=== PATIENT | female | born 1935 | race Caucasian/White ===

== ENCOUNTER 2019-02-19 11:56 | Inpatient (IN) ==
[2019-02-19] MEDS ORDERED: DUONEB (A & A) INH ONE (12:37)
[2019-02-19] MEDS ORDERED: SOLU-MEDROL IV ONE (12:37)
[2019-02-19] MEDS ORDERED: NS 1,000 ML IV ONE ×2 (12:37→16:13)
[2019-02-19 13:19] LABS: BASO# 0.16 X1000 (0.0-0.2); BASO% 1.1 % (0.0-0.8); EOS# 0.23 X1000 (0.0-0.7); EOS% 1.6 % (0.0-10.0); HEMOGLOBIN 9.9 g/dL (12.0-16.0); IMM GRAN# 0.03 X1000 (0.0-0.04); IMM GRAN% 0.2 % (0.0-0.5); LYMPH# 1.76 X1000 (1.2-3.4); LYMPH% 12.3 % (20.5-51.1); MCH 27.3 PG (27-31); MCHC 30.9 g/dL (33-37); MCV 88.4 FL (81-99); MONO# 1.47 X1000 (0.11-0.59); MONO% 10.3 % (1.7-9.3); MPV 12.5 FL (7.4-10.4); NEUT# 10.65 X1000 (1.4-6.5); NEUT% 74.5 % (42.2-75.2); PLT 240 X1000 (130-400); RBC 3.62 XMIL (4.2-5.4); RDW 16.6 % (11.5-14.5)
[2019-02-19 13:32] LABS: AGAP 11; ALBUMIN 3.7 g/dL (3.5-5.0); ALKALINE PHOSPHATASE 130 U/L (32-104); BUN 17 mg/dL (8-22); CALCIUM 9.8 mg/dL (8.8-10.2); CHLORIDE 100 mmol/L (98-107); COSMO 270; CREATININE 0.6 mg/dL (0.5-0.9); ESTIMATED GFR > 60; GLUCOSE 111 mg/dL (70-104); GOT 21 U/L (10-30); GPT 10 U/L (10-36); POTASSIUM 4.3 mmol/L (3.5-5.1); SODIUM 134 mmol/L (136-145); TCO2 23 mmol/L (25-35); TOTAL PROTEIN 6.1 g/dL (6.3-8.3)
--- NOTE | 2019-02-19 13:35 | EKG Report ---
Test Performed on : 02/19/2019 12:26:58 PM Test Reason : sob Blood Pressure : / mmHG Vent. Rate : 080 BPM Atrial Rate : 394 BPM P-R Int : 000 ms QRS Dur : 084 ms QT Int : 386 ms P-R-T Axes : 000 063 065 degrees QTc Int : 445 ms Atrial fibrillation. Anterior infarct , age undetermined Abnormal ECG No previous ECGs available Unconfirmed Result
--- NOTE | 2019-02-19 13:51 | Diag Imaging Result Doc PS360 ---
EXAM: CHEST-PORTABLE INDICATION: cough TECHNIQUE: One view COMPARISON: None. FINDINGS: There is pulmonary venous congestion. There are bilateral infiltrates with a basilar predominance indicating pulmonary edema +/- pneumonia. There are bilateral small pleural effusions. There is no evidence of pneumothorax. The heart appears to be enlarged. IMPRESSION: Pulmonary venous congestion and bibasilar infiltrates indicating pulmonary edema +/- pneumonia with bilateral effusions. Electronically signed by Jose Cody 02/19/2019 1:49 PM
[2019-02-19 14:03] LABS: URINE SOURCE CATH
[2019-02-19 14:06] LABS: INR 0.95; PROTIME 13.2 Seconds (11.0-16.0)
[2019-02-19 14:07] LABS: PTT 30.3 Seconds (22.3-41.8)
[2019-02-19 14:07] LABS: BILIRUBIN URINE NEGATIVE (NEGATIVE); BLOOD URINE NEGATIVE (NEGATIVE); COLOR STRAW; GLUCOSE URINE NEGATIVE (NEGATIVE); KETONE URINE NEGATIVE (NEGATIVE); LEUKOCYTES URINE NEGATIVE (NEGATIVE); NITRITE URINE NEGATIVE (NEGATIVE); PROTEIN URINE NEGATIVE (NEGATIVE); SP GRAVITY URINE 1.007; TURBIDITY URINE CLEAR (CLEAR); UROBILINOGEN URINE NORMAL (NORMAL)
[2019-02-19 14:08] LABS: UR EPITHELIAL CELLS <10 /HPF (<10); URINE BACTERIA NEGATIVE /HPF; URINE RBC <10 /HPF (<10); URINE WBC <10 /HPF (<10)
[2019-02-19 14:26] LABS: INFLUENZA A NEGATIVE (NEGATIVE); INFLUENZA B NEGATIVE (NEGATIVE)
--- NOTE | 2019-02-19 16:11 | PROVIDER DOCUMENTATION ---
This chart was entered by Rosy Butcher Scribe, acting as scribe for Frances Jenkins MD. HPI-Respiratory General - General Chief Complaint: Shortness of Breath Stated Complaint: SOB Time Seen by Provider: 02/19/19 12:13 Source: patient, family (son), EMS ([facility]) Allergies/Adverse Reactions: Patient Allergies Allergy/AdvReac Type Severity Reaction Status Date / Time No Known Allergies Allergy Verified 02/19/19 12:19 Home Medications: Home Medication List Medication Instructions Recorded Confirmed Last Taken Type Anagrelide HCl 1 mg PO DIRECTED 02/19/19 02/19/19 02/19/19 History 1 tablet Aspirin [Aspir-Low] 81 mg PO QAM 02/19/19 02/19/19 02/19/19 History 81mg Furosemide [Lasix] 40 mg PO QAM 02/19/19 02/19/19 02/05/19 History 40mg Metoprolol [Lopressor] 50 mg PO BID 02/19/19 02/19/19 02/19/19 History 50mg Potassium Chloride E.r. [Klor-Con] 20 meq PO DIRECTED 02/19/19 02/19/19 02/05/19 History 20meq - History of Present Illness-Resp Nature of Presenting Problem: 83 yowf presents to the ed with c/o sob that has been worsening. pt has muscular dystrophy and is cared for by her son in his home. per ems when they aos pt had O2 sat of 88% on RA, pt was placed on 6LPM via NC and O2 sat came up to 93%. pt was seen on Wednesday by her pcp and had an xray done but does not know results. pt on exam is having mild sob with muscle accessory use but no wheezing is heard Quality of Pain: reports: none Severity in ED: reports: moderate (sob) Onset/Duration: reports: 5 days ago Timing: reports: still present, getting worse Exposure: reports: unknown cause Cough Quality/Degree: reports: mild, dry cough Episode Frequency: occasional episodes Current Respiratory Medication Therapy: Initiated see nurses note Modifying Factors: improves with: oxygen. worse with: coughing Associated Symptoms: reports: cough, shortness of breath. denies: chest pain/soreness, headache, wheezing Similar Symptoms Previously?: Yes Recently seen or treated by another doctor?: Yes (saw pcp on 02/14/19) Review of Systems - Adult - REVIEW OF SYSTEMS - ADULT Constitutional: denies: chills, fever Eyes: reports: no symptoms reported Ears, Nose, Mouth & Throat: reports: no symptoms reported Cardiovascular: denies: chest pain, palpitations Respiratory: reports: see HPI, cough, shortness of breath. denies: wheezing Gastrointestinal: denies: abdominal pain, diarrhea, nausea, vomiting Genitourinary: reports: no symptoms reported Musculoskeletal: denies: back pain, neck pain Integumentary: reports: no symptoms reported Neurological: denies: dizziness/vertigo, headache/migraines Psychiatric: reports: no symptoms reported Endocrine: reports: no symptoms reported Hematologic/Lymphatic: reports: no symptoms reported Allergic/Immunologic: reports: no symptoms reported All Other Systems: Reviewed and Negative Past History - Adult - PAST MEDICAL HISTORY-ADULT Review of Records: reports: Old Records Reviewed, Nursing Assessment Review, Medications Reviewed, Social history reviewed & non-contributory. Major Childhood Illnesses: reports: denies history Cardiovascular: reports: HTN Respiratory: reports: denies history Gastrointestinal: reports: denies history Obstetrical/Gynecological: reports: denies history Genitourinary: reports: denies history Musculoskeletal: reports: denies history Neurological: reports: Muscular Dystrophy Psychiatric: reports: denies history Endocrine/Immune: reports: denies history Other Conditions: reports: denies history - PRIOR SURGERIES/PROCEDURES Surgical/Procedure History: reports: reviewed, not pertinent - IMMUNIZATION STATUS Childhood Immunizations: See Nurse Assessment Flu Vaccine: See Nurse Assessment - FAMILY HISTORY Family History: reviewed, not pertinent - SOCIAL HISTORY Smoking: denies Substance Use: denies Alcohol Use Frequency: never Living Situation: family (son lives with pt) Physical Exam-General - PHYSICAL EXAM-ADULT Initial Vital Signs Reviewed: Yes - CONSTITUTIONAL General Appearance: appears well, alert, mild distress - EYES Eyes: PERRL/EOMI, pink conjunctivae - HEAD, EARS, NOSE, MOUTH & THROAT HENMT: moist mucous membranes - NECK Neck: non-tender, full range of motion, supple, normal inspection - RESPIRATORY Respiratory: chest non-tender, respiratory distress (mild), accessory muscle use , other (pt is 93% on 6LPM via NC) - CARDIOVASCULAR Cardiovascular: normal peripheral pulses, regular rate, rhythm - CHEST (BREASTS) Chest/Breast: deferred - GASTROINTESTINAL (ABDOMEN) Abdominal Exam: normal bowel sounds, non tender, soft - GENITOURINARY Female Genitalia/Pelvic Exam: deferred Rectal Exam: deferred Hemoccult Exam: deferred - LYMPHATIC Lymphatic: no adenopathy - MUSCULOSKELETAL Back Exam: other (pt is nonambultory and lying supine on exam. back not examined) Extremity: normal inspection, other (pt has MD) - SKIN Integumentary: normal color, normal turgor, warm/dry - NEUROLOGIC Neurologic: grossly normal - PSYCHIATRIC Psych/Mental Status: normal mood/affect, normal thought content, normal thought process, oriented x 3 Progress - PLAN OF CARE/RESULTS Progress/Plan/Lab Results: Vital Signs - 8 hr 02/19/19 12:11 02/19/19 13:10 02/19/19 14:05 Temperature 97.8 F Pulse Rate 83 78 75 Respiratory Rate 22 34 H 25 H Blood Pressure 168/82 149/96 O2 Sat by Pulse Oximetry 93 L 95 02/19/19 14:06 02/19/19 14:52 Temperature 97.5 F L Pulse Rate 88 Respiratory Rate 21 Blood Pressure 146/79 O2 Sat by Pulse Oximetry 94 L 95 Laboratory Results - last 24 hr 02/19/19 02/19/19 02/19/19 12:58 12:59 12:59 WBC 14.30 H RBC 3.62 L Hgb 9.9 L Hct 32.0 L MCV 88.4 MCH 27.3 MCHC 30.9 L RDW Std Deviation 16.6 H Plt Count 240 MPV 12.5 H Immature Gran % (Auto) 0.2 Neut % (Auto) 74.5 Lymph % (Auto) 12.3 L Kemper % (Auto) 10.3 H Eos % (Auto) 1.6 Baso % (Auto) 1.1 H Immature Gran # (Auto) 0.03 Neut # (Auto) 10.65 H Lymph # (Auto) 1.76 Kemper # (Auto) 1.47 H Eos # (Auto) 0.23 Baso # (Auto) 0.16 PT 13.2 INR 0.95 PTT (Actin FS) 30.3 Sodium 134 L Potassium 4.3 Chloride 100 Carbon Dioxide 23 L Anion Gap 11 BUN 17 Creatinine 0.6 Estimated GFR/1.73 m2 > 60 BUN/Creatinine Ratio 28 Glucose 111 H Calculated Osmolality 270 Calcium 9.8 Total Bilirubin 0.70 AST 21 ALT 10 Alkaline Phosphatase 130 H Creatine Kinase Troponin T Fys-G-Gftqxbhcoyu Pept Total Protein 6.1 L Albumin 3.7 Globulin 2.0 Albumin/Globulin Ratio 2.0 Plasma Lactate Urine Source Urine Color Urine Turbidity Urine pH Ur Specific Vandiver Urine Protein Ur Glucose (Stick) Ur Ketones (Stick) Urine Blood Urine Nitrite Urine Bilirubin Urobilinogen Dipstick Urine Leukocytes Urine WBC (Auto) Urine RBC (Auto) U Epithel Cells (Auto) Urine Bacteria (Auto) Influenza A (Rapid) Influenza B (Rapid) 02/19/19 02/19/19 02/19/19 12:59 12:59 12:59 WBC RBC Hgb Hct MCV MCH MCHC RDW Std Deviation Plt Count MPV Immature Gran % (Auto) Neut % (Auto) Lymph % (Auto) Kemper % (Auto) Eos % (Auto) Baso % (Auto) Immature Gran # (Auto) Neut # (Auto) Lymph # (Auto) Kemper # (Auto) Eos # (Auto) Baso # (Auto) PT INR PTT (Actin FS) Sodium Potassium Chloride Carbon Dioxide Anion Gap BUN Creatinine Estimated GFR/1.73 m2 BUN/Creatinine Ratio Glucose Calculated Osmolality Calcium Total Bilirubin AST ALT Alkaline Phosphatase Creatine Kinase Troponin T < 0.010 Rqk-O-Lirgejhkabi Pept 2644 H Total Protein Albumin Globulin Albumin/Globulin Ratio Plasma Lactate 2.0 Urine Source Urine Color Urine Turbidity Urine pH Ur Specific Vandiver Urine Protein Ur Glucose (Stick) Ur Ketones (Stick) Urine Blood Urine Nitrite Urine Bilirubin Urobilinogen Dipstick Urine Leukocytes Urine WBC (Auto) Urine RBC (Auto) U Epithel Cells (Auto) Urine Bacteria (Auto) Influenza A (Rapid) Influenza B (Rapid) 02/19/19 02/19/19 02/19/19 12:59 13:48 14:00 WBC RBC Hgb Hct MCV MCH MCHC RDW Std Deviation Plt Count MPV Immature Gran % (Auto) Neut % (Auto) Lymph % (Auto) Kemper % (Auto) Eos % (Auto) Baso % (Auto) Immature Gran # (Auto) Neut # (Auto) Lymph # (Auto) Kemper # (Auto) Eos # (Auto) Baso # (Auto) PT INR PTT (Actin FS) Sodium Potassium Chloride Carbon Dioxide Anion Gap BUN Creatinine Estimated GFR/1.73 m2 BUN/Creatinine Ratio Glucose Calculated Osmolality Calcium Total Bilirubin AST ALT Alkaline Phosphatase Creatine Kinase 28 Troponin T Ibl-N-Eakerrentit Pept Total Protein Albumin Globulin Albumin/Globulin Ratio Plasma Lactate Urine Source CATH Urine Color STRAW Urine Turbidity CLEAR Urine pH 6.0 Ur Specific Vandiver 1.007 Urine Protein NEGATIVE Ur Glucose (Stick) NEGATIVE Ur Ketones (Stick) NEGATIVE Urine Blood NEGATIVE Urine Nitrite NEGATIVE Urine Bilirubin NEGATIVE Urobilinogen Dipstick NORMAL Urine Leukocytes NEGATIVE Urine WBC (Auto) <10 Urine RBC (Auto) <10 U Epithel Cells (Auto) <10 Urine Bacteria (Auto) NEGATIVE Influenza A (Rapid) NEGATIVE Influenza B (Rapid) NEGATIVE Orders Category Date Time Status Cardiac Monitoring DIRECTED Care 02/19/19 13:37 Active Cardona Cath Insertion ORDERED Care 02/19/19 13:45 Active Notify MD of + Sepsis Screen NOW Care 02/19/19 13:37 Active Notify Physician As Ordered Care 02/19/19 13:37 Active Saline Loc NOW Care 02/19/19 12:37 Active CHEST-PORTABLE [RAD] Stat Exams 02/19/19 12:38 Completed BLOOD CULTURE [BLDCUL] Stat Lab 02/19/19 13:07 Ordered CBC WITH DIFF [HEME] Stat Lab 02/19/19 12:59 Completed CK PROFILE [SP CHEM] Stat Lab 02/19/19 12:59 Completed COMPREHENSIVE METABOLIC PANEL [CHEM] Stat Lab 02/19/19 12:[address] Stat Lab 02/19/19 13:48 Completed LACTATE, PLASMA [CHEM] Lab 02/19/19 15:55 Received LACTATE, PLASMA [CHEM] Lab 02/19/19 19:00 Uncollected LACTATE, PLASMA [CHEM] Stat Lab 02/19/19 12:59 Completed PRO B-NATRIURETIC PEPTIDE Stat Lab 02/19/19 12:59 Completed PROTIME WITH INR [COAG] Stat Lab 02/19/19 12:58 Completed PTT [COAG] Stat Lab 02/19/19 12:58 Completed TROPONIN T Stat Lab 02/19/19 12:59 Completed URINALYSIS W/POSS RFLX CULT [URINALYSIS] Stat Lab 02/19/19 14:00 Completed 0.9% Sodium Chloride Inj [Ns] 1,000 ml Med 02/19/19 12:37 Discontinued IV 999 mls/hr Albuterol 2.5MG/Ipratrop 0.5MG [Duoneb (A & A)] Med 02/19/19 12:37 Discontinued 9 ml INH NOW ONE Methylprednisolone Sod Succ [Solu-Medrol] Med 02/19/19 12:37 Discontinued 125 mg IV NOW ONE Aerosol Treatments Routine Oth 02/19/19 12:38 Completed Aerosol Treatments Stat Oth 02/19/19 12:38 Completed Oxygen Device Stat Oth 02/19/19 13:37 Active Pulse Oximetry Stat Oth 02/19/19 12:37 Completed EKG [EKG] Stat Ther 02/19/19 12:17 Draft Result Diagrams: 02/19/19 12:59 02/19/19 12:59 - REASSESSMENT Reassessment #1 Time Reassessed: 14:03 Status: improving (dr jenkins at bedside pt is resting) Reassessment #2 Time Reassessed: 16:02 Status: unchanged (pt is resting in bed in no distress) - EKG 1 Time of EKG reading by physician:: 12:26 EKG Read and Signed by:: Frances Jenkins EKG Interpretation (*Must complete 3 of following elements*): Abnormal Rate: 80 Rhythm: afib [place]: normal QRS: normal DC Interval: normal ST Wave: normal Comments: anterior infarct, age undetermined - XRAY 1 XRAY: Bilateral XRAY Study: Chest Impression: See EMR Report (EXAM: CHEST-PORTABLE INDICATION: cough TECHNIQUE: One view COMPARISON: None. FINDINGS: There is pulmonary venous congestion. There are bilateral infiltrates with a basilar predominance indicating pulmonary edema +/- pneumonia. There are bilateral small pleural effusions. There is no evidence of pneumothorax. The heart appears to be enlarged. IMPRESSION: Pulmonary venous congestion and bibasilar infiltrates indicating pulmonary edema +/- pneumonia with bilateral effusions. Electronically signed by Jose Cody 02/19/2019 1:49 PM 02/19/19 1340 Interpreting Physician: Jose Cody MD Dictated Date/Time: 02/19/19 1349 cc: Frances Jenkins MD; Cooper Mata MD) - CONSULTS/PCP/HOSPITALIST Notification #1 *Consult/PCP/Hospitalist*: hospitalist dr clarke Time Discussed: 16:09 Consult Disposition: Admit Departure - Departure Date of Disposition Decision: 02/19/19 Time of Disposition Decision: 16:09 DIAGNOSIS: PNA (pneumonia) Qualifiers: Pneumonia type: due to unspecified organism Laterality: unspecified laterality Lung location: unspecified part of lung Qualified Code(s): J18.9 - Pneumonia, unspecified organism CHF (congestive heart failure) Qualifiers: Heart failure type: unspecified Heart failure chronicity: unspecified Qualified Code(s): I50.9 - Heart failure, unspecified Disposition: ADMITTED INPATIENT 09 Certified Medical Emergency: Emergent Condition: Good Referrals and Follow-Ups: Cooper Mata MD [Primary Care Provider] - - Critical Care Note This patient required my direct & personal management of CC.: Yes Total Time (mins): 36 Critical Care Statement: This patient required my direct personal management to treat or rule out processes, the absence of which, could potentiallly result in sudden, clinically significant life or limb threatening deterioration. Attestation - Physician/ MARYCHUY Attestation Patient care was provided by Advanced Practice Provider:: No The physician spent face to face time with patient:: Yes Advanced Practice Provider documentation review:: Supervising physician onsite and consulted in the evaluation and care of this patient. The physician did have a face to face encounter with the patient. This chart was documented by the indicated scribe, (Rosy Butcher Scribe) and accurately reflects the services I performed and decisions made by me, Frances Jenkins MD, as attested by the provider's signature.
[2019-02-19] MEDS ORDERED: ZOFRAN IV PRN (16:15)
[2019-02-19] MEDS ORDERED: TYLENOL PO PRN (16:15)
[2019-02-19] MEDS ORDERED: LEVAQUIN 750 MG/D5W 750 MG/150 ML IVPB IV ONE (16:17)
[2019-02-19] MEDS ORDERED: LASIX IV ONE (16:17)
--- NOTE | 2019-02-19 21:17 | HISTORY AND PHYSICAL ---
PRIMARY CARE PROVIDER: Cooper Mata. CHIEF COMPLAINT: Shortness of breath. HISTORY OF PRESENT ILLNESS: Ms. 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 She states symptoms originally started 1 month ago. It felt like it was more sinus and then 2 weeks ago went to a [facility] and had a chest x-ray. They started her on doxycycline for 10 days, an intramuscular Rocephin and a shot of steroids. From that time she started feeling more fatigue. She did take all 10 days. She started producing yellow phlegm which she states actually started when her cough started. Her shortness of breath has been for at least 1 week. She woke up at 6:15 this morning with significant shortness of breath. She was still able to eat and she laid back down, but the shortness of breath did not improve. With her muscular dystrophy, she states for several weeks now she has been having some issues with swallowing, but does not relate to coughing and swallowing being at the same time. Chest x-ray here shows that she has bilateral infiltrates, most likely pneumonia, could be pulmonary edema as well. She has gotten Lasix and she has been started on some antibiotics. She was hypoxic and required oxygen. PAST MEDICAL HISTORY: 1. Muscular dystrophy. 2. Platelet disorder. 3. Hypertension. 4. Chronic lower extremity edema. SURGICAL HISTORY: 1. Bilateral tubal ligation. 2. Bilateral cataracts. SOCIAL HISTORY: Denies tobacco, alcohol or illicit drug use. Lives with her son. Uses a walker around the house, uses a wheelchair when she is out and about. FAMILY HISTORY: Mother and father and sister had heart disease and she had a brother and a sister who also had muscular dystrophy. ALLERGIES: No known drug allergies. HOME MEDICATIONS: 1. Anagrelide takes 1 mg every morning and then every other day, takes 1 mg twice a day. This is for her muscular dystrophy. 2. Aspirin 81 mg p.o. daily. 3. Lasix 40 mg p.o. daily. 4. Potassium chloride 20 mEq p.o. daily. 5. Metoprolol 50 mg p.o. twice daily. REVIEW OF SYSTEMS: Fourteen point review of systems are complete and all were negative except for those mentioned above in the HPI. PHYSICAL EXAMINATION: VITAL SIGNS: Temperature 97.5 degrees, heart rate 88, respiratory rate 18, blood pressure 146/79, O2 saturation 95% on 2 L nasal cannula. GENERAL: Ms. Seema Moe is an 83-year-old female. She is in no acute distress. She is able answer questions appropriately. HEENT: Atraumatic, normocephalic. Pupils equal, round, reactive to light. Extraocular movements intact. Mucous membranes are moist. NECK: Trachea midline. Negative JVD or carotid bruits. CARDIOVASCULAR: S1, S2. Regular rate and rhythm. No rubs, gallops, murmurs. She has got 2+ to 3+ lower extremity pitting edema, +2 radial pulses and dorsalis pedal pulses. PULMONARY: Clear to auscultate. Bilateral breath sounds. No accessory muscle use or work of breathing noted. GI: Soft, nontender, nondistended. Positive bowel sounds x4. EXTREMITIES: Decreased range of motion. Decreased strength in all extremities. SKIN: Warm, dry and pale. NEUROLOGIC: A and O x3. Follows commands. Sensory is intact. LABORATORY DATA: White blood cells 14,000, hemoglobin 9, hematocrit 32, platelet count 240,000. INR 0.95, PTT is 30.3. Sodium 134, potassium 4.3, BUN 17, creatinine 0.6, glucose 111, calcium 9.8, bilirubin 0.70, AST 21, ALT 10. CK 28, troponin less than 0.01. ProBNP 2644. Albumin 3.7. Serum lactate is 2.0. Urinalysis negative. Flu negative. IMAGING: Chest x-ray: Bibasilar infiltrates or pneumonia versus pulmonary edema and there are effusions as well. EKG is atrial fibrillation. Rate is 80. ASSESSMENT/PLAN: 1. Bibasilar pneumonia, failed outpatient treatment. She will be on Zosyn. We will also do IV steroids and nebulizers. 2. Acute hypoxemic respiratory failure, p.r.n. oxygen. Keep saturations over 90. She was in the upper 80s when she was on room air when she got here. Continue nebulizers. 3. Muscular dystrophy. Apparently, this is causing more dysphagia over the last few weeks, which could increase her risk for aspiration pneumonia. We will get a swallow. We will order physical therapy. 4. Platelet disorder. She is on Anagrelide and that is being resumed. She is followed by Dr. Green. Platelets are normal. 5. Hypertension. Continue metoprolol. 6. Chronic lower extremity edema. Continue Lasix. 7. Possible congestive heart failure. It is not reported, but we will get a echocardiogram. She has gotten Lasix because she could have some pulmonary edema. 8. Atrial fibrillation. Rate seems to be controlled. Unclear if this is a chronic condition or not. She did mention it with her history and physical. She is not on any blood thinners at home and there is no previous EKGs to evaluate what her heart rhythm has been in the past. She had an echocardiogram back in 2013. It was normal ejection fraction. Pulmonary pressure was a little elevated at 36. 9. Deep venous thrombosis prophylaxis. Sequential compression devices. Dictated by MARINO Corrigan for Jose Crespo MD Addendum: Patient seen and examined by myself. Agree with MARINO note. It reflects my assessment and plan. Patient is being admitted to hospital for bibasilar pneumonia so will start broad spectrum IV antibiotics. Will provide Duoneb and monitor patient closely. Will resume home medications as well. cc: MARINO Corrigan MD [facility]ITALAlicia
[2019-02-19] MEDS: DUONEB (A & A) INH SCH (21:36)
[2019-02-19] MEDS: ZOSYN 3.375 GM in NS 50 ML IV SCH (22:40)
[2019-02-19] MEDS: LOPRESSOR PO SCH (22:41)
[2019-02-19] MEDS: SOLU-MEDROL IV SCH (22:41)
[2019-02-20] MEDS: ZOSYN 3.375 GM in NS 50 ML IV SCH ×4 (04:54→20:22)
[2019-02-20] MEDS: SOLU-MEDROL IV SCH ×3 (04:55→20:18)
[2019-02-20 06:15] LABS: BASO# 0.03 X1000 (0.0-0.2); BASO% 0.2 % (0.0-0.8); HEMATOCRIT 32.2 % (37.0-47.0); IMM GRAN# 0.03 X1000 (0.0-0.04); IMM GRAN% 0.2 % (0.0-0.5); LYMPH# 0.74 X1000 (1.2-3.4); LYMPH% 4.9 % (20.5-51.1); MCH 27.2 PG (27-31); MCHC 31.1 g/dL (33-37); MCV 87.5 FL (81-99); MONO# 0.24 X1000 (0.11-0.59); MONO% 1.6 % (1.7-9.3); MPV 12.7 FL (7.4-10.4); NEUT% 93.1 % (42.2-75.2); PLT 183 X1000 (130-400); RBC 3.68 XMIL (4.2-5.4); RDW 16.5 % (11.5-14.5); WBC 15.24 X1000 (4.8-10.8)
[2019-02-20 06:27] LABS: AGAP 12; ALBUMIN 3.6 g/dL (3.5-5.0); ALKALINE PHOSPHATASE 120 U/L (32-104); BUN 20 mg/dL (8-22); CALCIUM 9.9 mg/dL (8.8-10.2); CHLORIDE 102 mmol/L (98-107); COSMO 276; CREATININE 0.8 mg/dL (0.5-0.9); ESTIMATED GFR > 60; GLUCOSE 127 mg/dL (70-104); GOT 19 U/L (10-30); GPT 9 U/L (10-36); POTASSIUM 4.2 mmol/L (3.5-5.1); SODIUM 136 mmol/L (136-145); TCO2 22 mmol/L (25-35); TOTAL PROTEIN 6.3 g/dL (6.3-8.3)
--- NOTE | 2019-02-20 07:33 | Diag Imaging Result Doc PS360 ---
EXAM: CHEST-PORTABLE - 02/20/2019 HISTORY: Pneumonia TECHNIQUE: Portable chest COMPARISON: 02/19/2019 FINDINGS: There has been some decrease in infiltrates at the bilateral lung bases. There are small right and medium left pleural effusions which appear stable to mildly decreased. There is persistent vascular congestion. There is no pneumothorax identified. Heart size appears to have decreased mildly. IMPRESSION: Some interval improvement in pulmonary edema and/or basilar pneumonia. Electronically signed by Scar Urbano 02/20/2019 7:30 AM
[2019-02-20 07:37] LABS: ANISOCYTOSIS 1+; EOS 1 % (1-10); LYMPHS 10 % (21-51); MONO 1 % (1-9); SEGS 88 % (42-75)
[2019-02-20] MEDS: KLOR-CON PO SCH (08:52)
[2019-02-20] MEDS: LOPRESSOR PO SCH ×2 (08:53→20:18)
[2019-02-20] MEDS: ASPIRIN EC PO SCH (08:53)
[2019-02-20] MEDS: LASIX PO SCH (08:53)
--- NOTE | 2019-02-20 10:10 | PROGRESS NOTE ---
DATE: 02/20/2019 SUBJECTIVE: The patient reports breathing better. Denies any fever or chills. OBJECTIVE: Vital Signs: Temperature 97.7, heart rate 88, respiratory rate 18, blood pressure 163/83, O2 saturation 95% on 2 L nasal cannula. General: This is an 83-year-old, chronically ill- appearing, female, lying in bed in no acute distress. Cardiovascular: S1 and S2 heard. No murmurs, gallops, or rubs. Regular rate and rhythm. Respiratory: Coarse breath sounds noted in both pulmonary bases. The patient is not using any accessory muscles or having work of breathing. Abdomen: Soft, nontender to palpation, nondistended. Bowel sounds present. No organomegaly. Extremities: Decreased range of motion. There is lower extremity pitting edema 3+ , but peripheral pulses are present in both legs. Neurological: The patient is alert and oriented x3. Moves all 4 extremities. LABORATORY DATA: White cell count 15.24, hemoglobin 10.0, hematocrit 32.2, platelets 183,000, with BMP that is unremarkable, except blood sugar 137. ASSESSMENT AND PLAN: 1. Bibasilar pneumonia. Will continue with Zosyn. She failed outpatient treatment. Will continue with the same management. 2. Acute hypoxemic respiratory failure secondary to condition #1. Will continue with oxygen supplementation. 3. Muscular dystrophy. Aware. Will continue to monitor. 4. Hypertension. Will continue with metoprolol. 5. Chronic lower extremity edema. Will continue with Lasix. 6. Atrial fibrillation, now controlled. Will continue with the same medication. 7. Disposition. Will continue with antibiotics for this bilateral pneumonia. Will continue to monitor BMP daily. cc: Jose Crespo MD
[2019-02-20] MEDS: DUONEB (A & A) INH SCH ×3 (10:30→22:41)
--- NOTE | 2019-02-20 17:51 | ECHO REPORT ---
ORDER DATE: 02/19/2019 ECHOCARDIOGRAPHIC MEASUREMENTS: 1. Interventricular septum 0.9. 2. Left ventricular posterior wall 0.7. 3. Diastolic diameter 3.0. 4. Left atrium 3. 5. Aorta 2.1 SUMMARY OF TWO-DIMENSIONAL IMAGIN. Mitral valve was normal. 2. Aortic valve leaflets were trileaflet. 3. Tricuspid valve was normal. Normal left ventricular cavity size. Estimated ejection fraction of 60%. Pulmonic valve was normal. There is mild pulmonary regurgitation. Peak velocity across the aortic valve less than 2 m/sec. There is no aortic stenosis. There is mild aortic regurgitation. There is moderate eccentric mitral regurgitation. 4. There is mild to moderate tricuspid regurgitation. Peak velocity across the tricuspid valve was 3.1 m/sec. 5. Pulmonary artery systolic pressure of 50 mmHg. There is no aortic stenosis. There is mild aortic regurgitation. 6. There is pleural effusion noted. 7. Trace anterior echo-free space, more suggestive of fat pad, cannot rule out trace anterior pericardial effusion. There is no evidence of tamponade. There is no obvious intracardiac mass or thrombus seen. cc: MD Mariel Patel CRNP
[2019-02-20] MEDS: AGRYLIN PO SCH (18:56)
[2019-02-20] MEDS ORDERED: AGRYLIN PO SCH (21:00)
[2019-02-21] MEDS: ZOSYN 3.375 GM in NS 50 ML IV SCH ×4 (02:47→23:03)
[2019-02-21] MEDS: SOLU-MEDROL IV SCH ×3 (06:00→23:04)
[2019-02-21 06:44] LABS: BASO# 0.02 X1000 (0.0-0.2); BASO% 0.1 % (0.0-0.8); EOS# 0.28 X1000 (0.0-0.7); EOS% 1.1 % (0.0-10.0); HEMATOCRIT 30.5 % (37.0-47.0); HEMOGLOBIN 9.7 g/dL (12.0-16.0); IMM GRAN# 0.09 X1000 (0.0-0.04); IMM GRAN% 0.4 % (0.0-0.5); LYMPH# 0.92 X1000 (1.2-3.4); LYMPH% 3.7 % (20.5-51.1); MCH 27.8 PG (27-31); MCHC 31.8 g/dL (33-37); MCV 87.4 FL (81-99); MONO# 1.12 X1000 (0.11-0.59); MONO% 4.5 % (1.7-9.3); MPV 12.6 FL (7.4-10.4); NEUT# 22.31 X1000 (1.4-6.5); NEUT% 90.2 % (42.2-75.2); PLT 203 X1000 (130-400); RBC 3.49 XMIL (4.2-5.4); RDW 16.7 % (11.5-14.5); WBC 24.74 X1000 (4.8-10.8)
[2019-02-21 06:55] LABS: AGAP 14; ALBUMIN 3.6 g/dL (3.5-5.0); ALKALINE PHOSPHATASE 113 U/L (32-104); BUN 24 mg/dL (8-22); CALCIUM 9.9 mg/dL (8.8-10.2); CHLORIDE 103 mmol/L (98-107); COSMO 281; CREATININE 0.8 mg/dL (0.5-0.9); ESTIMATED GFR > 60; GLUCOSE 150 mg/dL (70-104); GOT 32 U/L (10-30); GPT 18 U/L (10-36); POTASSIUM 3.7 mmol/L (3.5-5.1); SODIUM 137 mmol/L (136-145); TCO2 20 mmol/L (25-35); TOTAL PROTEIN 5.9 g/dL (6.3-8.3)
[2019-02-21] MEDS: ASPIRIN EC PO SCH (08:04)
[2019-02-21] MEDS: LOPRESSOR PO SCH ×2 (08:04→23:03)
[2019-02-21] MEDS: LASIX PO SCH (08:06)
[2019-02-21] MEDS: KLOR-CON PO SCH (08:06)
[2019-02-21 08:23] LABS: EOS 1 % (1-10); LYMPHS 4 % (21-51); MONO 3 % (1-9); SEGS 92 % (42-75)
[2019-02-21] MEDS ORDERED: AGRYLIN PO SCH (09:00)
[2019-02-21] MEDS: DUONEB (A & A) INH SCH ×3 (09:00→21:52)
[2019-02-21] MEDS: DOXYCYCLINE PO SCH ×2 (11:36→23:03)
--- NOTE | 2019-02-21 21:14 | PROGRESS NOTE ---
DATE: 02/21/2019 SUBJECTIVE: The patient notes that she is feeling a lot better. She notes her cough is improved. States her breathing is improved. Denies any chest pain, palpitations. Denies any fevers. States that she slept well last night, although she was quite confused and thought at one point she was capturing small kids and then capturing larger kids that had escaped. She woke up frightened, but now she realizes that it was simply a nightmare. PHYSICAL EXAMINATION: Vital signs: Temperature 97.6 degrees, pulse 82, respiratory rate 18, BP 144/79. General: Patient is awake, very pleasant. She is in minimal respiratory distress. HEENT: Normocephalic. Neck: Supple. Cardiovascular: Regular rate. No murmurs. Chest: Clear, nonlabored. Abdomen: Soft, nondistended. Extremities: Moves all extremities. Neurologic: No changes. ASSESSMENT: 1. Bilateral pneumonia. 2. Leukocytosis. White count is actually increased from 15 to 24, although clinically she looks much better. 3. Anemia of chronic disease at 9 and 30. 4. Acute hypoxic respiratory failure. 5. Muscular dystrophy. Patient notes that she typically does not walk at home. She usually stays in a wheelchair if she has to move about. 6. Hypertension. 7. Chronic lower extremity edema, secondary to paralysis and disuse. 8. Atrial fibrillation. PLAN: We are going to continue her in the hospital. She is on antibiotics. We are going to add doxycycline to see if this helps. Unsure as to why her white count has increased when clinically she is improved. We are going to follow. Recheck in the a.m.. cc: Reza Selby MD
[2019-02-22] MEDS: ZOSYN 3.375 GM in NS 50 ML IV SCH ×3 (03:33→14:25)
[2019-02-22] MEDS: SOLU-MEDROL IV SCH (04:09)
[2019-02-22 06:04] LABS: HEMATOCRIT 30.5 % (37.0-47.0); HEMOGLOBIN 9.4 g/dL (12.0-16.0); IMM GRAN# 0.04 X1000 (0.0-0.04); IMM GRAN% 0.2 % (0.0-0.5); LYMPH# 0.65 X1000 (1.2-3.4); LYMPH% 3.6 % (20.5-51.1); MCH 26.9 PG (27-31); MCHC 30.8 g/dL (33-37); MCV 87.4 FL (81-99); MONO# 0.56 X1000 (0.11-0.59); MONO% 3.1 % (1.7-9.3); NEUT# 16.64 X1000 (1.4-6.5); NEUT% 93.1 % (42.2-75.2); PLT 158 X1000 (130-400); RBC 3.49 XMIL (4.2-5.4); RDW 16.6 % (11.5-14.5); WBC 17.89 X1000 (4.8-10.8)
[2019-02-22 06:18] LABS: ALBUMIN 3.2 g/dL (3.5-5.0); CALCIUM 9.5 mg/dL (8.8-10.2); CREATININE 0.9 mg/dL (0.5-0.9); POTASSIUM 3.5 mmol/L (3.5-5.1); TOTAL BILIRUBIN 0.4 mg/dL (0.20-1.00); TOTAL PROTEIN 5.9 g/dL (6.3-8.3)
[2019-02-22 07:42] VITALS: BP 149/71
[2019-02-22 08:41] LABS: SEGS 95 % (42-75)
[2019-02-22 08:42] LABS: LYMPHS 3 % (21-51); MONO 2 % (1-9)
[2019-02-22] MEDS: DUONEB (A & A) INH SCH (09:00)
[2019-02-22] MEDS: DOXYCYCLINE PO SCH (09:03)
[2019-02-22] MEDS: LASIX PO SCH (09:03)
[2019-02-22] MEDS: LOPRESSOR PO SCH (09:03)
[2019-02-22] MEDS: KLOR-CON PO SCH (09:03)
[2019-02-22] MEDS: ASPIRIN EC PO SCH (09:03)
[2019-02-22] MEDS: AGRYLIN PO SCH (09:53)
[2019-02-22] MEDS ORDERED: ZOFRAN ODT PO ONE (13:47)
[2019-02-22] MEDS ORDERED: SOLU-MEDROL IV SCH (16:00)
--- NOTE | 2019-02-23 03:53 | DISCHARGE SUMMARY ---
ADMISSION DATE: 02/19/2019 DISCHARGE DATE: 02/22/2019 PRIMARY CARE PROVIDER: Dr. Cooper Mata. PERTINENT PROCEDURES: Chest x-ray: Pulmonary venous congestion and bibasilar infiltrates indicating pulmonary edema plus or minus pneumonia with bilateral effusions. Echocardiogram showed a pulmonary arterial systolic pressure of 50 mmHg, an EF of 60%. Followup chest x-ray shows interval improvement. DISCHARGE DIAGNOSES: 1. Bilateral pneumonia, improved. The patient will be discharged on Omnicef and doxycycline. 2. Leukocytosis secondary to pneumonia and intravenous steroids, improved. 3. Anemia of chronic disease, stable. 4. Acute hypoxemic respiratory failure, improved. Patient is oxygenating well on room air. 5. Muscular dystrophy. The patient typically does not walk at home. She usually stays in her wheelchair. 6. Hypertension. Continue home regimen. 7. Chronic lower extremity edema secondary to paralysis. 8. Atrial fibrillation. Continue home regimen. HOSPITAL COURSE: Briefly, Ms. 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 Her symptoms had initially started a month prior. She had went to a primary care 2 weeks prior and received doxycycline for 10 days, and IM Rocephin and a steroid shot, but she continued to progressively worsen with her shortness of breath. Her workup in the ED showed bilateral infiltrates, most likely pneumonia as well as some pulmonary edema. She was treated with IV Lasix and started on IV antibiotics as well as supplemental O2 for hypoxemia. Over the course of the hospital stay Ms. Moe has continued to improve daily and she is ready to be discharged back home. VITAL SIGNS: At the time of her discharge, temperature is 98.2 degrees, heart rate 83, respirations 18, blood pressure 149/71, O2 is 94% on room air. DISCHARGE DIET: Healthy heart. DISCHARGE MEDICATIONS: 1. Agrylin 1 mg p.o. q.48 hours. 2. Aspirin 81 mg p.o. q.a.m. 3. Colace 100 mg p.o. every other day p.r.n. constipation. 4. Potassium 20 mEq p.o. as directed with Lasix. 5. Lasix 40 mg p.o. q.a.m. as needed for swelling. 6. Lopressor 50 mg p.o. b.i.d. 7. Vitamin B12 1000 mcg sublingual daily. 8. Doxycycline 100 mg p.o. b.i.d. for 14 tablets. 9. Medrol Dosepak 4 mg p.o. as directed x1 package. 10. Omnicef 300 mg p.o. b.i.d. for 14 tablets. FOLLOW-UP: Ms. Moe is being discharged back home with self care. She is to take all medications as prescribed. She is to follow up with her primary care provider, Dr. Cooper Mata, in 7 to 10 days. She can return to the ED or call 911 for any worsening of symptoms. Dictated by MARINO Hernandez for Reza Selby MD cc: MD Cooper Carrillo MD
--- NOTE | 2019-02-23 04:06 | DISCHARGE SUMMARY ---
ADMISSION DATE: 02/19/2019 DISCHARGE DATE: 02/22/2019 ADDENDUM: Patient seen and examined by myself. Full note dictated and discussed with nurse practitioner. On discharge, patient is awake, alert. She notes that she is feeling a lot better. Her cough is improved. Her congestion, shortness of breath are improved. She is asking to go home. We will discharge her home on antibiotics. She will follow up outpatient with her primary care. Her white count is continuing to improve and she states that she is feeling much better. cc: Reza Selby MD
== END 2019-02-22 15:20 | disposition home or self-care (01) | DRG 871 ==
LOC: SUPCPDRO → P.ED 11:56 → P.MEDSURG 11:57 → SUATTDRO 11:57
PROVIDERS: ATTEND Family Medicine